=== PATIENT | female | born 1975 | race African-American/Black ===

== ENCOUNTER 2016-08-23 19:00 | Emergency (ER) ==
[2016-08-23] MEDS ORDERED: MORPHINE IV ONE (19:21)
[2016-08-23] MEDS ORDERED: NS 1,000 ML IV ONE (19:21)
[2016-08-23] MEDS ORDERED: ZOFRAN IV ONE (19:21)
--- NOTE | 2016-08-23 19:27 | PROVIDER DOCUMENTATION ---
HPI-General Adult - General Chief Complaint: Nausea/Vomiting Stated Complaint: VOMITING Time Seen by Provider: 08/23/16 19:14 Source: patient Allergies/Adverse Reactions: Patient Allergies Allergy/AdvReac Type Severity Reaction Status Date / Time codeine Allergy ITCHING Verified 07/11/14 13:32 Home Medications: No Home Medications 08/23/16 - History of Present Illness -Gen Adult Nature of Presenting Problems: 41 yo F presents to the ER with complaint of cough and congestion x 2 weeks. Today pt felt nauseous and has vomited all day. Pt now complains of sinus pressure and pain under her eyes x 1 day. Pt denies SOB. Severity: reports: mild Onset/Duration: reports: other (cough and congestion (2 weeks); sinus pain & pressure with nausea and vomit (1 day)) Timing: reports: still present Associated Symptoms: reports: cough, sinus congestion/drainage, nausea, vomiting Review of Systems - Adult - REVIEW OF SYSTEMS - ADULT Constitutional: denies: chills, fever Eyes: reports: no symptoms reported Ears, Nose, Mouth & Throat: reports: no symptoms reported Cardiovascular: denies: chest pain, palpitations Respiratory: reports: cough. denies: shortness of breath Gastrointestinal: reports: nausea, vomiting. denies: abdominal pain, diarrhea Genitourinary: reports: no symptoms reported Musculoskeletal: denies: back pain, neck pain Integumentary: reports: no symptoms reported Neurological: reports: no symptoms reported Psychiatric: reports: no symptoms reported Endocrine: reports: no symptoms reported Hematologic/Lymphatic: reports: no symptoms reported Allergic/Immunologic: reports: no symptoms reported All Other Systems: Reviewed and Negative Past History - Adult - PAST MEDICAL HISTORY-ADULT Review of Records: reports: Old Records Reviewed, Nursing Assessment Review, Medications Reviewed Major Childhood Illnesses: reports: denies history Cardiovascular: reports: denies history Obstetrical/Gynecological: reports: ectopic - PRIOR SURGERIES/PROCEDURES Surgical/Procedure History: reports: tonsillectomy - IMMUNIZATION STATUS Childhood Immunizations: See Nurse Assessment Flu Vaccine: See Nurse Assessment - FAMILY HISTORY Family History: reviewed, not pertinent Physical Exam-General - PHYSICAL EXAM-ADULT Initial Vital Signs Reviewed: Yes - CONSTITUTIONAL General Appearance: appears well, alert, no apparent distress - EYES Eyes: PERRL/EOMI, pink conjunctivae - HEAD, EARS, NOSE, MOUTH & THROAT HENMT: normocephalic/atraumatic, moist mucous membranes - NECK Neck: non-tender, full range of motion, supple - RESPIRATORY Respiratory: chest non-tender, lungs clear - CARDIOVASCULAR Cardiovascular: normal peripheral pulses, regular rate, rhythm - GASTROINTESTINAL (ABDOMEN) Abdominal Exam: normal bowel sounds, soft - MUSCULOSKELETAL Extremity: normal range of motion, non-tender, normal gait - SKIN Integumentary: normal color, normal turgor Progress - PLAN OF CARE/RESULTS Progress/Plan/Lab Results: Orders Category Date Time Status CHEST-2 VIEWS [RAD] Stat Exams 08/23/16 19:21 Taken 0.9% Sodium Chloride Inj [Ns] 1,000 ml Med 08/23/16 19:21 Discontinued IV 999 mls/hr Morphine Med 08/23/16 19:21 Discontinued 4 mg IV NOW ONE Ondansetron [Zofran] Med 08/23/16 19:21 Discontinued 4 mg IV NOW ONE Vital Signs Temp Pulse Resp BP Pulse Ox 08/23/16 19:07 98.5 F 74 18 97/61 100 codeine Allergy (Verified 07/11/14 13:32) ITCHING No Home Medications 08/23/16 - XRAY 1 XRAY Study: Chest Impression: Normal XRAY Interpretation: normal, per radiology Departure - Departure Time of Disposition Order: 20:48 DIAGNOSIS: Sinusitis Qualifiers: Sinusitis location: unspecified location Chronicity: unspecified Qualified Code (s): J32.9 - Chronic sinusitis, unspecified Vomiting Qualifiers: Vomiting type: unspecified Vomiting Intractability: unspecified Nausea presence : with nausea Qualified Code(s): R11.2 - Nausea with vomiting, unspecified Disposition: HOME 01 Certified Medical Emergency: Emergent Condition: Good Additional Instructions: ED Follow Up Instructions: You have been treated by a care provider in the Emergency Department. These instructions are being provided to you so you can have an understanding of how to care for yourself upon discharge. Upon discharge from the Emergency Department, you are responsible for making arrangements for follow-up care by a physician of your choice. Take all prescribed medications as directed. Return to the Emergency Department immediately for any new or worsening symptoms. You may call the Physician Referral phone number at [phone] to obtain a list of Physicians who are taking new patients. Referrals: None,PCP [Primary Care Provider] - Attestation - Scribe Verification/Attestation Scribe:: Trey Maxwell Acting as Scribe for:: Morteza Aldana Scribselena documention review:: This chart was documented by a scribe and accurately reflects the service the provider performed and the decisions made by the provider.
[2016-08-23] MEDS ORDERED: AMOXIL PO ONE (20:48)
[2016-08-23 21:38] VITALS: BP 098/069
--- NOTE | 2016-08-23 23:29 | Diag Imaging Result Document ---
PROCEDURE NAME: CHEST-2 VIEWS - 08/23/2016 PA AND LATERAL RADIOGRAPH OF THE CHEST: COMPARISON: 07/11/2014. FINDINGS: Lungs are clear. There is no definite pleural fluid collection. Cardiac silhouette and central vasculature are unremarkable. There is stable scoliosis. IMPRESSION: No evidence of acute pathology.
== END 2016-08-23 21:36 | disposition home or self-care (01) ==
LOC: P.ED 19:00
DX: J32.9 Chronic sinusitis, unspecified (principal); R11.2 Nausea with vomiting, unspecified; R05 Cough; R09.81 Nasal congestion
CPT/HCPCS: 71020; J2270; J2405; J7030